=== PATIENT | male | born 1945 | race Two or more races ===

== ENCOUNTER 2017-07-27 09:08 | Outpatient (CLI) | payer OTHER | END 2017-07-27 09:16 | disposition home or self-care (01) | LOC: RAD 501 09:08 | DX: M15.0 Primary generalized (osteo)arthritis (principal) ==

== ENCOUNTER 2017-09-28 09:54 | Outpatient (CLI) | payer OTHER | END 2017-09-28 11:00 | disposition home or self-care (01) | LOC: RAD 501 09:54 | DX: M15.0 Primary generalized (osteo)arthritis (principal) ==

== ENCOUNTER 2018-01-01 07:46 | Outpatient (CLI) | payer OTHER | END 2018-01-01 07:52 | disposition home or self-care (01) | LOC: NUCLEAR 07:46 | DX: M05.79 Rheumatoid arthritis with rheumatoid factor of multiple sites without organ or systems involvement (principal); M87.059 Idiopathic aseptic necrosis of unspecified femur | CPT/HCPCS: 78306; 78315; A9503 ==

== ENCOUNTER 2019-11-07 12:07 | Outpatient (CLI) | payer OTHER | END 2019-11-07 12:10 | disposition home or self-care (01) | LOC: RAD 12:07 | PROVIDERS: ATTEND Urology | DX: R97.20 Elevated prostate specific antigen [PSA] (principal) ==

== ENCOUNTER → 2020-02-18 | Outpatient (CLI) | payer OTHER | END | disposition home or self-care (01) | LOC: MRI 08:15 | PROVIDERS: ATTEND Urology | DX: K57.90 Diverticulosis of intestine, part unspecified, without perforation or abscess without bleeding (principal); N41.8 Other inflammatory diseases of prostate; R97.20 Elevated prostate specific antigen [PSA]; C61 Malignant neoplasm of prostate | CPT/HCPCS: 72197; A9575 ==

== ENCOUNTER 2020-04-09 07:22 | Outpatient (CLI) | payer OTHER | END 2020-04-09 11:42 | disposition home or self-care (01) | LOC: NUCLEAR 07:22 | PROVIDERS: ATTEND Urology | DX: C61 Malignant neoplasm of prostate (principal) | CPT/HCPCS: 78306; A9503 ==

== ENCOUNTER 2021-05-25 08:35 | Outpatient (CLI) | payer OTHER | END 2021-05-25 08:46 | disposition home or self-care (01) | LOC: MRI 08:35 | PROVIDERS: ATTEND Urology | DX: C61 Malignant neoplasm of prostate (principal) | CPT/HCPCS: 72197; 74183 ==

== ENCOUNTER → 2022-08-18 | Outpatient (CLI) | payer OTHER | END | disposition home or self-care (01) | LOC: NUCLEAR 07:25 | PROVIDERS: ATTEND Urology | DX: C61 Malignant neoplasm of prostate (principal) | CPT/HCPCS: 78306; A9503 ==